=== PATIENT | female | born 1965 | race Caucasian/White ===

== ENCOUNTER → 2024-07-08 15:00 | Outpatient (REF) | payer BC, SELFPAY | LOC: RAD 15:00 | PROVIDERS: ATTENDING PHYSICIAN Obstetrics & Gynecology | DX: N20.0 Calculus of kidney (principal) | CPT/HCPCS: 74018 ==

== ENCOUNTER 2024-07-13 08:02 | Emergency (ER) | payer BC, SELFPAY ==
[2024-07-13 08:04] VITALS: BP 169/95
--- NOTE | 2024-07-13 08:34 | ED.GENMED ---
History of Present Illness
General
Chief Complaint: Cardiac Symptoms
Source: patient
Exam Limitations: none
Time Seen by Provider: 07/13/24 08:33
Nursing documentation reviewed up to this point in time: agreed with
History of Present Illness
History of Present Illness:
58-year-old female with history of kidney stones presents with left flank pain waxing and waning past 5 days, worse today, now 7/10 with nausea, no vomiting. Denies fever. Had BM and shortly afterwards checked her pulse ox and says it read HR 20's,
she felt lightheaded and had left flank pain.
Past History
Past History
ED Past Medical History: None
ED Past Surgical History: None
Social History
Tobacco: Non-smoker
Alcohol: None
Personal:
Living: with family
Employment: Not employed
Family History
Family History: Cancer (Ovarian)
Review of Systems
Review of Systems
Allergies reviewed?: Yes
All Other Systems: ROS reviewed and negative except as documented in HPI and ROS
Constitutional: Denies fever
Respiratory: Denies trouble breathing
Cardiac: Reports other (reports her pulse ox at home read heart rate in the 20's); Denies chest pain, diaphoresis, palpitations or syncope
ABD/GI: Reports nausea; Denies abdominal pain, vomiting or diarrhea
: Reports flank pain (left); Denies dysuria, frequency, difficulty voiding or urgency
Phy Exam
Physical Exam
Physical Exam:
GENERAL: Mild distress due to flank pain. A&Ox3.
CONSTITUTIONAL: Afebrile.
EYES: clear, conjunctivae normal
ENMT: moist mucus membranes
RESPIRATORY: Regular respirations, nonlabored, lungs clear.
CARDIOVASCULAR: Regular rate and rhythm, no murmurs, no rubs.
GI: Soft, nontender, normal BS. Left flank tenderness
MUSCULOSKELETAL: Moves with ease. Well perfused.
SKIN: Warm, dry, pink
PSYCH: Mildly anxious mood and affect. Well kept, interactive and appropriate
NEUROLOGIC: Awake, alert and oriented. No focal neurological deficits
Course
Orders/Labs/Results
Orders:
Orders
07/13/24 08:07
Electrocardiogram (*1) Urgent
Reason for Study: Bradycardia / Tachycardia
EKG- Treatment ONCE
07/13/24 08:39
CT Abd/pel Without Iv Or Oral Urgent
Comment:
Reason For Exam: L flank pain, hx kidney stones
0.9% Sodium Chloride 1000 ml [Nss] 1,000 ml IV BOLUS
Ketorolac [Toradol] 15 mg IV NOW STA
07/13/24 08:40
Ondansetron Injectable [Zofran] 4 mg IV NOW STA
07/13/24 08:59
Complete Blood Count/With Diff Urgent
Urinalysis Reflex To Culture Urgent
Date Specimen was Collected: 07/13/24
Time Specimen was Collected: 08:58
07/13/24 10:13
Comprehensive Metabolic Panel Urgent
07/13/24 11:32
Magnesium Citrate [Citroma] 300 ml .ROUTE .STK-MED ONE
07/13/24 11:46
Magnesium Citrate [Citroma] 300 ml PO ONCE ONE
Abnormal Lab Results
07/13/24
08:59
Hct 36.8 L %
(37.0-47.0)
Eosinophils % 8.3 H %
(0-6)
07/13/24 08:59
07/13/24 10:13
Vital Signs
Initial and Last Documented VS:
Initial Vital Signs
Temp Pulse Resp BP Pulse Ox
97.6 F 66 16 169/95 100
07/13/24 08:04 07/13/24 08:04 07/13/24 08:04 07/13/24 08:04 07/13/24 08:04
Last Documented Vital Signs
Temp Pulse Resp BP Pulse Ox
97.6 F 59 15 122/73 97
07/13/24 08:04 07/13/24 11:30 07/13/24 11:30 07/13/24 10:00 07/13/24 11:30
MDM/Problems Addressed
Differential Diagnosis Includes:
kidney/ureteral calculus, UTI, pyelonephritis
MDM/Problems Addressed:
58-year-old female with history of kidney stones presents with left flank pain waxing and waning past 5 days, worse today, now 7/10 with nausea, no vomiting. Denies fever. Had BM and shortly afterwards checked her pulse ox and says it read HR 20's,
she felt lightheaded and had left flank pain.
EKG, NSR with marked sinus arrhythmia
Afebrile
CBC normal
CMP normal
U/A neg
CT abd pelvis radiology report read: IMPRESSION: No acute pathology of the abdomen pelvis identified. No urinary stones identified.
Findings consistent with prior benign granulomatous disease. Stable
Hepatomegaly. 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
Moderate fecal matter throughout the colon. Progressed (Pt had out pt one view abdomen on 07/08/24)
Results discussed with pt.
Referred to GI for follow up
Pt given bottle of Mag Citrate to go.
*EKG
EKG Intrepretation Date: 07/13/24
Interpretation: abnormal
Heart Rate: 66
Rate: normal
Rhythm: sinus and sinus arrhythmia
[place]: normal axis
Interval: normal interval
QRS Pattern: normal QRS
Ischemia: no ischemia
*Critical Care Note
Total Time (30-74mins, 75-104mins- exclusive of procedures): Not Applicable
ED Attending Note
-
Portions of this chart may have been created with voice recognition software.� Occasional wrong word or��sound alike� substitutions may have occurred due to the inherent limitations of voice recognition software.
Discharge Plan
Departure
Patient Disposition: Home (Routine Discharge)
Date of Disposition: 07/13/24
Time of Disposition: 11:08
Patient with high blood pressure during this ER visit?: No
Condition: Good
Discharge Problem:
Constipation
Prescriptions:
No Action
pantoprazole 40 MG tablet,delayed release (DR/EC)
40 mg PO DAILY Qty: 15 0RF
Referrals:
Reyna Lo MD [Active, Gastroenterology] - Next open appointment
UNKNOWN - PT DOES,NOT KNOW [Family Provider]
Activity Restrictions/Additional Instructions:
As we discussed, your CT scan is showing progressed constipation from your abdominal xray last week. Otherwise, nothing worrisome.
Your lab work and urine are normal.
Follow 'constipation' instructions provided.
Drink at least 8 eight ounce glasses of water/liquid daily.
Make appointment with the GI doctor for follow up and to schedule colonoscopy
Interventions
Interventions:
*Risk Screen - Suicide Last Done: 07/13/24 08:07
*General Assessment Last Done: 07/13/24 11:50
*Neglect/Abuse Screening Last Done: 07/13/24 08:07
*ED- Fall Risk Assessment Last Done: 07/13/24 11:50
*ED COVID-19 Vaccine History Last Done: 07/13/24 11:50
*Nursing Disposition Last Done: 07/13/24 11:50
ED- Pulmonary Assessment Last Done: 07/13/24 10:02
ED- Cardiac Assessment Last Done: 07/13/24 10:02
Discharge Date and Time
Discharge Date/Time: 07/13/24 11:50
Print Language: GERMAN
[2024-07-13 08:52] VITALS: BMI 21.2
[2024-07-13 09:02] VITALS: BP 138/88
[2024-07-13] MEDS: NSS 1000 IV (09:05)
[2024-07-13] MEDS: TORADOL 15 MG IV (09:05)
[2024-07-13] MEDS: ZOFRAN 4 MG IV (09:05)
[2024-07-13 09:13] LABS: % Basophils 0.8 % (0-2); % Eosinophils 8.3 % (0-6); % Immature Granulocytes 0.2 % (0-0.5); % Lymphocytes 26.7 % (20.5-51.1); Absolute Eosinophils 0.4 10^3/uL (0-0.7); Absolute Lymphocytes 1.3 10^3/uL (1.2-3.4); Absolute Monocytes 0.3 10^3/uL (0.1-0.6); Absolute Neutrophils 2.8 10^3/uL (1.4-6.5); Hematocrit 36.8 % (37.0-47.0); Hemoglobin 12.7 g/dL (12.0-16.0); Mean Corp Hgb Conc. 34.5 g/dL (33.0-37.0); Mean Corpuscular Hgb 30.2 pg (27.0-31.0); Mean Corpuscular Volume 87.4 fL (81.0-99.0); Nucleated Red Blood Cells % 0 %; Platelet Count 255 10^3/uL (130-400); Red Blood Cell Count 4.21 10^6/uL (4.20-5.40); Red Cell Dist. Width 12.2 % (11.5-14.5); White Blood Cell Count 4.8 10^3/uL (4.8-10.8)
[2024-07-13 09:23] LABS: Urine Albumin Negative (Neg - Trace); Urine Bilirubin Negative (Negative); Urine Character Clear (Clear); Urine Color Yellow; Urine Glucose Negative (Negative); Urine Ketone Negative (Negative); Urine Leukocyte Negative (Negative); Urine Nitrite Negative (Negative); Urine Occult Blood Negative (Negative); Urine Specific Gravity 1.015 (<1.030); Urine Urobilinogen Negative (Neg - 1+); Urine pH 6.5 (5.0-9.0)
[2024-07-13 10:00] VITALS: BP 122/73
[2024-07-13 10:58] LABS: ALT (SGPT) 15 U/L (0-35); AST (SGOT) 27 U/L (14-36); Albumin 4.5 g/dl (3.5-5.0); Alkaline Phosphatase 64 U/L (38-126); Blood Urea Nitrogen 17 mg/dl (7-17); Calcium 8.9 mg/dl (8.4-10.2); Carbon Dioxide 27 mmol/L (22-30); Chloride 107 mmol/L (98-107); Estimated Creatinine Clearance 101 ml/min; Glucose 93 mg/dl (70-99); Potassium 4.2 mmol/L (3.5-5.1); Sodium 138 mmol/L (135-145); Total Bilirubin 0.6 mg/dl (0.2-1.3); Total Protein 6.6 g/dl (6.3-8.2); eGFR > 60.00
[2024-07-13] MEDS: CITROMA 300 ML PO (11:47)
== END 2024-07-13 11:50 | disposition home or self-care (01) ==
LOC: EMR 08:02
PROVIDERS: Registered Nurse; EMERGENCY PHYSICIAN Emergency Medicine
DX: K59.00 Constipation, unspecified (principal); Z87.442 Personal history of urinary calculi
CPT/HCPCS: 99284; 96374; 96375; 96361; 74176; 80053; 81003; 85025; 93005